=== PATIENT | female | born 1945 | race Caucasian/White ===

== ENCOUNTER 2017-06-29 09:15 | Emergency (ER) | payer OTHER ==
[~2017-06-29] VITALS: Ht 160 cm; Wt 76.0 kg
[2017-06-29 09:36] VITALS: BP 176/117; PULSE 99; RESP 22; TEMP 98.7; O2SAT 90
[2017-06-29] MEDS ORDERED: FURO20TA PO (09:51)
[2017-06-29] MEDS ORDERED: METO25TA3 PO (09:51)
[2017-06-29] MEDS ORDERED: SYMB160A INH (09:51)
[2017-06-29] MEDS ORDERED: VENTAER INH (09:51)
[2017-06-29] MEDS ORDERED: ROPI.5 PO (09:51)
[2017-06-29] MEDS ORDERED: UMEC1INH INH (09:51)
[2017-06-29] MEDS ORDERED: ATOR20TA15 PO (09:51)
[2017-06-29 09:53] VITALS: BP 187/60; PULSE 91; RESP 20; TEMP 98.7; O2SAT 94
--- NOTE | 2017-06-29 10:13 | PD ---
HPI Chief Complaint: Cold / Flu Symptoms Time Seen by Provider: 09:53 Travel History International Travel<30 days: No Contact w/Intl Traveler<30days: No Traveled to known affect area: No History of Present Illness HPI This 71-year-old female says she feels like she has the flu. She has had a dry cough. She has felt a little bit short of breath. She has been told in the past that she has copd. sHe stopped smoking 5 years ago. She also has aortic stenosis which is being followed by a benefits clerk. She has some kidney disease. She has a stent in her heart. She has not been feeling well for the last couple of days. She has had a nonproductive cough. She says she had a temp of 101 yesterday. She had some sharp right-sided chest pain 2 days ago PFS Past Medical History Cardiovascular Problems: Yes (htn on meds) High Cholesterol: Yes COPD: Yes Diminished Hearing: No Hypertension: Yes Medical other: Yes (restless leg) Respiratory: Yes (copd) Influenza Vaccination: Yes ?: Not Past Surgical History Other Surgery: Yes (left bunionectomy) Social History Alcohol Use: No Tobacco Use: No Allergies-Medications (Allergen,Severity, Reaction): Coded Allergies: lisinopril (Verified Adverse Reaction, Severe, Cough, 06/29/17) Reported Meds & Prescriptions Reported Meds & Active Scripts Active Reported Requip (Ropinirole HCl) 0.5 Mg Tab 0.5 Mg PO HS Atorvastatin (Atorvastatin Calcium) 20 Mg Tab 20 Mg PO HS Metoprolol Tartrate 25 Mg Tab 25 Mg PO HS Furosemide 20 Mg Tab 20 Mg PO HS Ventolin Hfa 18 GM Inh (Albuterol Sulfate) 90 Mcg/Act Aer 2 Puff INH Q4-6H PRN Symbicort Inh (Budesonide/Formoterol Fumarate) 160-4.5 Mcg/Act Aero 1 Puff INH Q12HR Incruse Ellipta Inh (Umeclidinium [place] Inh) 0.0625 Mg/Act Inh 62.5 Mcg INH DAILY Review of Systems General / Constitutional: Positive: Fever, Chills Eyes: No: Diploplia, Blurred Vision HENT: No: Headaches, Vertigo Cardiovascular: Positive: Chest Pain or Discomfort Respiratory: No: Cough, Shortness of Breath Physical Exam Narrative GENERAL: Well-developed female. She does not appear in acute distress SKIN: Focused skin assessment warm/dry. HEAD: Atraumatic. Normocephalic. EYES: Pupils equal and round. No scleral icterus. No injection or drainage. ENT: No nasal bleeding or discharge. Mucous membranes pink and moist. NECK: Trachea midline. No JVD. CARDIOVASCULAR: Regular rate and rhythm. There is a systolic murmur present RESPIRATORY: No accessory muscle use. There are occasional rhonchi. Breath sounds equal bilaterally. GASTROINTESTINAL: Abdomen soft, non-tender, nondistended. Hepatic and splenic margins not palpable. MUSCULOSKELETAL: No obvious deformities. No clubbing. No cyanosis. Bilateral pedal edema NEUROLOGICAL: Awake and alert. No obvious cranial nerve deficits. Motor grossly within normal limits. Normal speech. PSYCHIATRIC: Appropriate mood and affect; insight and judgment normal. Data Data Last Documented VS Vital Signs Date Time Temp Pulse Resp B/P (MAP) Pulse Ox O2 Delivery O2 Flow Rate FiO2 06/29/17 10:57 86 18 159/65 (96) 95 Nasal Cannula 2.00 06/29/17 09:53 98.7 Orders Orders Electrocardiogram (06/29/17 10:06) Complete Blood Count With Diff (06/29/17 10:06) Comprehensive Metabolic Panel (06/29/17 10:06) Troponin I (06/29/17 10:06) B-Type Natriuretic Peptide (06/29/17 10:06) Urinalysis - C+S If Indicated (06/29/17 10:06) Chest, Single Ap (06/29/17 10:06) Influenzae A/B Antigen (06/29/17 10:06) Amoxicillin (Trimox) (06/29/17 11:30) Prednisone (Deltasone) (06/29/17 11:30) Labs Laboratory Tests Test 06/29/17 10:20 06/29/17 11:10 White Blood Count 16.2 TH/MM3 Red Blood Count 3.48 MIL/MM3 Hemoglobin 10.8 GM/DL Hematocrit 32.2 % Mean Corpuscular Volume 92.4 FL Mean Corpuscular Hemoglobin 31.0 PG Mean Corpuscular Hemoglobin Concent 33.5 % Red Cell Distribution Width 13.7 % Platelet Count 263 TH/MM3 Mean Platelet Volume 6.8 FL Neutrophils (%) (Auto) 83.1 % Lymphocytes (%) (Auto) 9.8 % Monocytes (%) (Auto) 5.4 % Eosinophils (%) (Auto) 0.5 % Basophils (%) (Auto) 1.2 % Neutrophils # (Auto) 13.4 TH/MM3 Lymphocytes # (Auto) 1.6 TH/MM3 Monocytes # (Auto) 0.9 TH/MM3 Eosinophils # (Auto) 0.1 TH/MM3 Basophils # (Auto) 0.2 TH/MM3 CBC Comment AUTO DIFF Differential Comment AUTO DIFF CONFIRMED Blood Urea Nitrogen 26 MG/DL Creatinine 1.60 MG/DL Random Glucose 78 MG/DL Total Protein 7.9 GM/DL Albumin 2.9 GM/DL Calcium Level 8.4 MG/DL Alkaline Phosphatase 90 U/L Aspartate Amino Transf (AST/SGOT) 16 U/L Alanine Aminotransferase (ALT/SGPT) 19 U/L Total Bilirubin 0.5 MG/DL Sodium Level 133 MEQ/L Potassium Level 4.1 MEQ/L Chloride Level 99 MEQ/L Carbon Dioxide Level 27.0 MEQ/L Anion Gap 7 MEQ/L Estimat Glomerular Filtration Rate 32 ML/MIN Troponin I LESS THAN 0.02 NG/ML B-Type Natriuretic Peptide 50 PG/ML MDM Medical Decision Making Medical Screen Exam Complete: Yes Emergency Medical Condition: Yes Medical Record Reviewed: Yes Differential Diagnosis Differential includes CHF, COPD, pneumonia Narrative Course X-rays read as negative. BNP is normal. Impression is acute bronchitis, COPD exacerbation. She will be put on amoxicillin and prednisone Diagnosis Primary Impression: Bronchitis Additional Impression: COPD exacerbation Scripts Amoxicillin (Amoxicillin) 500 Mg Tab 500 MG PO TID for Infection for 10 Days, TAB 0 Refills Prov: Uli Murphy MD 06/29/17 Prednisone (Prednisone) 20 Mg Tab 60 MG PO DAILY for 3 Days, #9 TAB 0 Refills Prov: Uli Murphy MD 06/29/17 Disposition: 01 DISCHARGE HOME Condition: Stable Uli Murphy MD Jun 29, 2017 10:13
[2017-06-29 10:25] LABS: AUTOMATED NEUTROPHIL # 13.4 TH/MM3 (1.8-7.7); BASOPHIL # 0.2 TH/MM3 (0-0.2); BASOPHIL % 1.2 % (0.0-2.0); EOSINOPHIL # 0.1 TH/MM3 (0-0.4); EOSINOPHIL % 0.5 % (0.0-4.0); HEMATOCRIT 32.2 % (35.0-46.0); LYMPH % 9.8 % (9.0-44.0); LYMPHOCYTE # 1.6 TH/MM3 (1.0-4.8); MEAN CELL VOLUME 92.4 FL (80.0-100.0); MEAN CORPUSCULAR HGB CONC 33.5 % (32.0-36.0); MONO % 5.4 % (0.0-8.0); NEUT % 83.1 % (16.0-70.0); PLATELET COUNT 263 TH/MM3 (150-450); RED BLOOD COUNT 3.48 MIL/MM3 (4.00-5.30); RED CELL DISTRIBUTION WIDTH 13.7 % (11.6-17.2); WHITE BLOOD COUNT 16.2 TH/MM3 (4.0-11.0)
[2017-06-29 10:27] LABS: HEMO FLAGS AUTO DIFF
[2017-06-29 10:39] LABS: CHLORIDE 99 MEQ/L (98-107); POTASSIUM 4.1 MEQ/L (3.5-5.1); SODIUM (NA) 133 MEQ/L (136-145)
[2017-06-29 10:42] LABS: ANION GAP 7 MEQ/L (5-15); BLOOD UREA NITROGEN 26 MG/DL (7-18)
[2017-06-29 10:45] LABS: ALT (GPT) 19 U/L (10-53); AST (GOT) 16 U/L (15-37); GLOMERULAR FILTRATION RATE 32 ML/MIN (>89)
[2017-06-29 10:47] LABS: TOTAL BILIRUBIN ADULT 0.5 MG/DL (0.2-1.0)
[2017-06-29 10:48] LABS: ALKALINE PHOSPHATASE 90 U/L (45-117)
[2017-06-29 10:53] LABS: SCAN/DIFF AUTO DIFF CONFIRMED
[2017-06-29 10:57] VITALS: BP 159/65; PULSE 86; RESP 18; O2SAT 95
--- NOTE | 2017-06-29 10:59 | RADRPT ---
EXAM DATE/TIME: 06/29/2017 10:37 [facility] COMPARISON: No previous studies available for comparison. INDICATIONS : Cough, short of breath. MEDICAL HISTORY : Chronic obstructive pulmonary disease. SURGICAL HISTORY : Coronary artery stent. ENCOUNTER: Initial ACUITY: 3 days PAIN SCORE: 0/10 LOCATION: Bilateral chest FINDINGS: A single view of the chest demonstrates the lungs to be symmetrically aerated without evidence of mas s, infiltrate or effusion. The cardiomediastinal contours are unremarkable. Osseous structures are intact. CONCLUSION: No acute disease. Fer Leavitt MD on June 29, 2017 at 10:57 Board Certified Radiologist. This report was verified electronically.
[2017-06-29] MEDS ORDERED: PRED20 PO (11:22)
[2017-06-29] MEDS ORDERED: AMOX500T PO (11:22)
[2017-06-29 11:27] LABS: BLOOD, URINE MOD (NEG); GLUCOSE,URINE NEG (NEG); KETONE, URINE 15 mg/dL (NEG); NITRITE,URINE NEG (NEG); PH, URINE 6.5 (5.0-8.5)
[2017-06-29 11:28] LABS: URINE COLOR YELLOW (YELLW/STRAW)
[2017-06-29 11:29] VITALS: BP 128/64
[2017-06-29] MEDS ORDERED: AMOXICILLIN (TRIHYDRATE) 500 MG CAP PO ONE (11:30)
[2017-06-29] MEDS ORDERED: predniSONE 20 MG TAB PO ONE (11:30)
[2017-06-29 11:35] LABS: BACTERIA, URINE RARE /hpf; COMMENT (UR) CULT NOT INDICATED; CULTURE IF INDICATED CULT NOT INDICATED; RBC, URINE 0-3 /hpf (0-3); SQUAMOUS EPITHELIAL CELL URINE 0-5 /hpf (0-5)
--- NOTE | 2017-06-30 18:28 | EKG ---
Date Performed: 06/29/2017 Time Performed: 10:14:12 PTAGE: 71 years EKG: Sinus rhythm POSSIBLE LEFT ATRIAL ENLARGEMENT BORDERLINE ECG NO PREVIOUS TRACING DOCTOR: Herlinda Spears Interpretating Date/Time 06/30/2017 18:19:24
== END 2017-06-29 11:33 | disposition home or self-care (01) ==
LOC: PHED 09:15
DX: J40 Bronchitis, not specified as acute or chronic (principal); J44.1 Chronic obstructive pulmonary disease with (acute) exacerbation; I35.0 Nonrheumatic aortic (valve) stenosis; R07.89 Other chest pain; R94.31 Abnormal electrocardiogram [ECG] [EKG]; I10 Essential (primary) hypertension; E78.00 Pure hypercholesterolemia, unspecified; G25.81 Restless legs syndrome; Z95.5 Presence of coronary angioplasty implant and graft
CPT/HCPCS: 71010; 80053; 81001; 83880; 84484; 85025; 87804; 93005; 99285; J7512

== ENCOUNTER 2018-06-29 01:24 | Inpatient (IN) ==
--- NOTE | 2018-06-29 01:34 | ED ---
HPI General Chief Complaint: Respiratory Symptoms Stated Complaint: EVAC/short of breath Time Seen by Provider: 06/29/18 01:30 Source: patient and EMS Mode of arrival: EMS Limitations: no limitations History of Present Illness HPI Narrative: Is a 72-year-old female who has a history of emphysema says that she has had an allergic reaction possibly to mold that she was cleaning out of her basement yesterday she has nebulizers it is not improving her symptoms which are wheezing shortness of breath paramedics arrived to find her deciding to 85 on room air after neb she is up to 97 while she is still on the oxygen patient denies chest pain no nausea no vomit no diarrhea no fluid loss she denies an upper respiratory infection she thinks it is all allergies she says she is not sure because she only moved to [place] 2 years ago so the weather patterns she is unclear whether they affect her lungs. She is audible wheezes without auscultation increased respiratory rate descending to 81 a room air prior to 20 been putting on 3 L and then giving a DuoNeb with oxygen Complaint: Reports cough Related Data Home Medications Medication Instructions Recorded Confirmed albuterol sulfate [Ventolin HFA] 1 puff INHALATION Q4HR NEB PRN 06/29/18 atorvastatin 40 mg PO DAILY 06/29/18 06/29/18 budesonide-formoterol [Symbicort] 2 puff INHALATION BID 06/29/18 06/29/18 furosemide 20 mg PO BID 06/29/18 06/29/18 metoprolol succinate 50 mg PO BID 06/29/18 06/29/18 pramipexole PO HS 06/29/18 tiotropium bromide [Spiriva with 1 cap INHALATION DAILY 06/29/18 06/29/18 HandiHaler] Previous Rx's Medication Instructions Recorded amlodipine [Norvasc] 10 mg PO DAILY #30 tab 07/03/18 prednisone 10 mg PO DAILY #17 tab 07/03/18 Allergies Allergy/AdvReac Type Severity Reaction Status Date / Time lisinopril AdvReac Severe Cough Verified 06/29/18 01:35 Review of Systems ROS: all other systems reviewed are negative [facility] Medical History Medical History Aortic stenosis (Acute) COPD (chronic obstructive pulmonary disease) (Acute) Surgical History Surgical History H/O heart artery stent (Acute) Family History Family History Mother Heart problem Myocardial infarct Brother Heart problem Social History Social History Substance History: No History of Abuse Second Hand Smoke Exposure: No Smoking Status: Former smoker Tobacco Type: Cigarettes How Often Do You Have a Drink Containing Alcohol: Never Recent Travel in [facility] within the Last 8 Weeks: No Recent Out of Country Travel within the Last 8 Weeks: No Exam Narrative Exam Narrative: GENERAL: pt wheezing with increased RR mod resp distress SKIN: Warm and dry. HEAD: Atraumatic. Normocephalic. EYES: Pupils equal and round. No scleral icterus. No injection or drainage. ENT: No nasal bleeding or discharge. Mucous membranes pink and moist. NECK: Trachea midline. No JVD. CARDIOVASCULAR: Regular rate and rhythm. RESPIRATORY: bilateral wheeze diffuse in all field equal bilaterally. GASTROINTESTINAL: Abdomen soft, non-tender, nondistended. Hepatic and splenic margins not palpable. MUSCULOSKELETAL: Extremities without clubbing, cyanosis, or edema. No obvious deformities. NEUROLOGICAL: Awake and alert. No obvious cranial nerve deficits. Motor grossly within normal limits. Five out of 5 muscle strength in the arms and legs. Normal speech. PSYCHIATRIC: Appropriate mood and affect; insight and judgment normal. Course Initial Documented Vital Signs Pulse Rate 112 H 06/29/18 01:29 Respiratory Rate 25 H 06/29/18 01:29 Blood Pressure 190/95 H 06/29/18 01:29 Pulse Oximetry 84 L 06/29/18 01:29 Last Documented Vital Signs Temperature 97.0 F L 07/03/18 12:00 Pulse Rate 84 07/03/18 12:00 Respiratory Rate 19 07/03/18 12:00 Blood Pressure 150/69 H 07/03/18 12:00 Pulse Oximetry 95 07/03/18 12:00 Medical Decision Making MDM Narrative Medical decision making narrative: symptomatic treatment and discharged home for outpt follow up Medical Screen Exam Complete: Yes Emergency Medical Condition: Yes Differential Diagnosis Differential Diagnosis: reactive airway vs PNA vs bronchchitis vs other Lab Data Result diagrams: 07/02/18 05:20 11/12/18 05:20 Lab Results 06/29/18 06/29/18 06/29/18 Range/Units 01:37 01:37 01:37 CBC w Diff Auto diff final WBC 7.7 (4.0-11.0) th/mm3 RBC 3.95 L (4.00-5.30) mil/mm3 Hgb 12.0 (11.6-15.3) gm/dL Hct 36.3 (35.0-46.0) % MCV 91.8 (80.0-100.0) fL MCH 30.5 (27.0-34.0) pg MCHC 33.2 (32.0-36.0) % RDW 15.3 (11.6-17.2) % Plt Count 245 (150-450) th/mm3 MPV 7.4 (7.0-11.0) fL Neut % (Auto) 87.9 H (16.0-70.0) % Lymph % (Auto) 11.0 (9.0-44.0) % Mckean % (Auto) 0.9 (0.0-8.0) % Eos % (Auto) 0.1 (0.0-4.0) % Baso % (Auto) 0.1 (0.0-2.0) % Neut # (Auto) 6.8 (1.8-7.7) th/mm3 Lymph # (Auto) 0.8 L (1.0-4.8) th/mm3 Mckean # (Auto) 0.1 (0.0-0.9) th/mm3 Eos # (Auto) 0.0 (0.0-0.4) th/mm3 Baso # (Auto) 0.0 (0.0-0.2) th/mm3 WBC Differential . Differential Comment . Sodium 135 L (136-145) meq/L Potassium 4.7 (3.5-5.1) meq/L Chloride 100 (98-107) meq/L Carbon Dioxide 26.9 (21.0-32.0) meq/L Anion Gap 8 (5-15) meq/L BUN 38 H (7-18) mg/dL Creatinine 1.90 H (0.50-1.00) mg/dL Estimated GFR 26 L (>89) mL/min Random Glucose 127 H (74-106) mg/dL Calcium 8.9 (8.5-10.1) mg/dL Total Bilirubin 0.4 (0.2-1.0) mg/dL AST 27 (15-37) U/L ALT 27 (10-53) U/L Alkaline Phosphatase 95 (45-117) U/L Troponin I Less than 0.02 L Cancelled (0.02-0.05) ng/mL Total Protein 8.7 H (6.4-8.2) g/dL Albumin 3.4 (3.4-5.0) g/dL Procalcitonin (0.00-0.08) ng/mL 06/30/18 06/30/18 07/01/18 Range/Units 09:40 09:40 11:47 CBC w Diff WBC (4.0-11.0) th/mm3 RBC (4.00-5.30) mil/mm3 Hgb (11.6-15.3) gm/dL Hct (35.0-46.0) % MCV (80.0-100.0) fL MCH (27.0-34.0) pg MCHC (32.0-36.0) % RDW (11.6-17.2) % Plt Count (150-450) th/mm3 MPV (7.0-11.0) fL Neut % (Auto) (16.0-70.0) % Lymph % (Auto) (9.0-44.0) % Mckean % (Auto) (0.0-8.0) % Eos % (Auto) (0.0-4.0) % Baso % (Auto) (0.0-2.0) % Neut # (Auto) (1.8-7.7) th/mm3 Lymph # (Auto) (1.0-4.8) th/mm3 Mckean # (Auto) (0.0-0.9) th/mm3 Eos # (Auto) (0.0-0.4) th/mm3 Baso # (Auto) (0.0-0.2) th/mm3 WBC Differential Differential Comment Sodium 133 L 134 L (136-145) meq/L Potassium 4.5 4.4 (3.5-5.1) meq/L Chloride 96 L 99 (98-107) meq/L Carbon Dioxide 27.1 28.0 (21.0-32.0) meq/L Anion Gap 10 7 (5-15) meq/L BUN 50 H 51 H (7-18) mg/dL Creatinine 2.00 H 1.70 H (0.50-1.00) mg/dL Estimated GFR 24 L 29 L (>89) mL/min Random Glucose 174 H 120 H (74-106) mg/dL Calcium 9.0 8.5 (8.5-10.1) mg/dL Total Bilirubin (0.2-1.0) mg/dL AST (15-37) U/L ALT (10-53) U/L Alkaline Phosphatase (45-117) U/L Troponin I (0.02-0.05) ng/mL Total Protein (6.4-8.2) g/dL Albumin (3.4-5.0) g/dL Procalcitonin 0.10 H (0.00-0.08) ng/mL 07/02/18 07/02/18 Range/Units 05:20 05:20 CBC w Diff Auto diff final WBC 11.9 H (4.0-11.0) th/mm3 RBC 3.90 L (4.00-5.30) mil/mm3 Hgb 12.0 (11.6-15.3) gm/dL Hct 36.2 (35.0-46.0) % MCV 92.8 (80.0-100.0) fL MCH 30.8 (27.0-34.0) pg MCHC 33.2 (32.0-36.0) % RDW 14.6 (11.6-17.2) % Plt Count 244 (150-450) th/mm3 MPV 7.1 (7.0-11.0) fL Neut % (Auto) 89.2 H (16.0-70.0) % Lymph % (Auto) 6.9 L (9.0-44.0) % Mckean % (Auto) 3.0 (0.0-8.0) % Eos % (Auto) 0.1 (0.0-4.0) % Baso % (Auto) 0.8 (0.0-2.0) % Neut # (Auto) 10.6 H (1.8-7.7) th/mm3 Lymph # (Auto) 0.8 L (1.0-4.8) th/mm3 Mckean # (Auto) 0.4 (0.0-0.9) th/mm3 Eos # (Auto) 0.0 (0.0-0.4) th/mm3 Baso # (Auto) 0.1 (0.0-0.2) th/mm3 WBC Differential . Differential Comment . Sodium 137 (136-145) meq/L Potassium 4.1 (3.5-5.1) meq/L Chloride 104 (98-107) meq/L Carbon Dioxide 24.2 (21.0-32.0) meq/L Anion Gap 9 (5-15) meq/L BUN 51 H (7-18) mg/dL Creatinine 1.50 H (0.50-1.00) mg/dL Estimated GFR 34 L (>89) mL/min Random Glucose 157 H (74-106) mg/dL Calcium 8.3 L (8.5-10.1) mg/dL Total Bilirubin (0.2-1.0) mg/dL AST (15-37) U/L ALT (10-53) U/L Alkaline Phosphatase (45-117) U/L Troponin I (0.02-0.05) ng/mL Total Protein (6.4-8.2) g/dL Albumin (3.4-5.0) g/dL Procalcitonin (0.00-0.08) ng/mL Imaging Data Radiologist's impression: Chest X-Ray 06/29/18 01:30 CONCLUSION: Negative examination. Discharge Plan Discharge Disposition Patient Disposition: 01 Discharge Home Discharge Condition Condition: Good Discharge Order Discharge Orders: Discharge Order (Routine); Ordered 07/03/18 Ordered By: Elzbieta Villeda Physicians Team ED Provider: Benji Casper Primary Care Provider: Mehdi Parikh Attending Provider: Elzbieta Villeda Other Providers: [employer] Status ED Status: Left Department Discharge Information Discharge Date/Time: 06/29/18 07:15
[2018-06-29] MEDS ORDERED: MethylPREDNISolone Sod Succinate Inj 125 MG/2 ML Vial IV.PUSH ONE (01:36)
[2018-06-29 01:57] LABS: Baso % (Auto) 0.1 % (0.0-2.0); Eos % (Auto) 0.1 % (0.0-4.0); Hematocrit 36.3 % (35.0-46.0); Lymph # (Auto) 0.8 th/mm3 (1.0-4.8); Mean Corpuscular HGB Conc 33.2 % (32.0-36.0); Mean Corpuscular Hemoglobin 30.5 pg (27.0-34.0); Mean Corpuscular Volume 91.8 fL (80.0-100.0); Mean Platelet Volume 7.4 fL (7.0-11.0); Mono # (Auto) 0.1 th/mm3 (0.0-0.9); Mono % (Auto) 0.9 % (0.0-8.0); Neut # (Auto) 6.8 th/mm3 (1.8-7.7); Neut % (Auto) 87.9 % (16.0-70.0); Platelet Count 245 th/mm3 (150-450); Red Blood Count 3.95 mil/mm3 (4.00-5.30); Red Cell Distribution Width 15.3 % (11.6-17.2); White Blood Count 7.7 th/mm3 (4.0-11.0)
[2018-06-29 02:02] LABS: Chloride 100 meq/L (98-107); Potassium 4.7 meq/L (3.5-5.1); Sodium 135 meq/L (136-145)
[2018-06-29 02:05] LABS: Calcium 8.9 mg/dL (8.5-10.1)
[2018-06-29 02:06] LABS: Albumin 3.4 g/dL (3.4-5.0); Anion Gap 8 meq/L (5-15); Blood Urea Nitrogen 38 mg/dL (7-18); Carbon Dioxide 26.9 meq/L (21.0-32.0); Glucose,Random 127 mg/dL (74-106)
[2018-06-29 02:09] LABS: Alanine Aminotransferase 27 U/L (10-53); Aspartate Aminotransferase 27 U/L (15-37); Glomerular Filtration Rate 26 mL/min (>89)
[2018-06-29 02:10] LABS: Total Protein 8.7 g/dL (6.4-8.2)
[2018-06-29 02:12] LABS: Alkaline Phosphatase 95 U/L (45-117)
--- NOTE | 2018-06-29 02:16 | XR ---
EXAM DATE: 06/29/2018 1:45 AM EST AGE/SEX: 72 years / Female INDICATIONS: Shortness of breath for 12 hours CLINICAL DATA: This is the patient's initial encounter. Patient reports that signs and symptoms have been present for 1 day and indicates a pain score of 0/10. MEDICAL/SURGICAL HISTORY: Chronic obstructive pulmonary disease. Coronary artery stent. COMPARISON: PO, CHEST SINGLE AP, 06/29/2017. . FINDINGS: A single AP view of the chest demonstrates the lungs to be symmetrically aerated without evidence of mass, infiltrate or effusion. The cardiomediastinal contours are unremarkable. Osseous structures a re intact. CONCLUSION: Negative examination. Electronically signed by: Sahil Paulino MD 06/29/2018 2:15 AM EST
[2018-06-29] MEDS ORDERED: Sodium Chlor 0.9% Inj 500 ML IV.SIG ONE (02:51)
[2018-06-29] MEDS: MethylPREDNISolone Sod Succinate Inj 125 MG/2 ML Vial IV.PUSH SCH ×4 (03:01→20:02)
--- NOTE | 2018-06-29 08:57 | P.HPIM ---
History of Present Illness Primary Care Physician: Mehdi Parikh MD History of Present Illness: 72-year-old female who has a history of emphysema/COPD, HLD, CAD with stent in the past says that she has had an allergic reaction possibly to mold that she was cleaning out of her basement yesterday she has nebulizers it is not improving her symptoms which are wheezing shortness of breath paramedics arrived to find her deciding to 85 on room air after neb she is up to 97 while she is still on the oxygen patient denies chest pain no nausea no vomit no diarrhea no fluid loss she denies an upper respiratory infection she thinks it is all allergies she says she is not sure because she only moved to [place] 2 years ago so the weather patterns she is unclear whether they affect her lungs. She is audible wheezes without auscultation increased respiratory rate descending to 81 a room air prior to 20 been putting on 3 L and then giving a DuoNeb with oxygen Inpatient Certification: I certify that the inpatient services were ordered in accordance with Medicare regulations governing the order. This includes certification that hospital inpatient services are reasonable and necessary and in the case of services not specified as inpatient-only under 42 CFR 419.22(n), that they are appropriately provided as inpatient services in accordance to with the 2-midnight benchmark under 43 CFR 412.3(e) Review of Systems All other systems reviewed negative except as stated in HPI PMFSH - History History Provided By: Patient - Medical History Medical History: Medical History (Last Reviewed 06/29/18 @ 08:54 by Sandy Galloway MD) Aortic stenosis COPD (chronic obstructive pulmonary disease) - Surgical History Surgical History: Surgical History (Last Reviewed 06/29/18 @ 08:54 by Sandy Galloway MD) H/O heart artery stent - Family History Family History: Family History (Last Updated 06/29/18 @ 11:02 by Sandy Galloway MD) Mother Heart problem Myocardial infarct Brother Heart problem - Social History I have reviewed the patient's Social History: Yes - Tobacco History Tobacco Use In Past 30 Days: No Smoking Status: Former smoker - Alcohol History How Often Do You Have a Drink Containing Alcohol: Never - Substance Use History Substance History: No History of Abuse - Travel History Recent Travel in the [place] Within the Last 8 Weeks: No Recent Travel Out of the Country Within the Last 8 Weeks: No - Immunization History Tetanus Immunization: >5 Years Medications and Allergies Active Medications: Active Medications Albuterol (Duoneb Neb (Prn)) 1 ampul NEB Q2HR NEB PRN PRN Reason: SHORTNESS OF BREATH/WHEEZING Albuterol (Duoneb Neb (Ray)) 1 ampul NEB Q6HR WHILE AWAKE NEB RAY Atorvastatin Calcium (Lipitor) 40 mg PO DAILY RAY Azithromycin (Zithromax) 500 mg PO DAILY RAY Stop: 07/01/18 09:01 Budesonide/Formoterol Fumarate (Symbicort 160/4.5 Mcg Inh) 2 puff INH BID RAY Furosemide (Lasix) 20 mg PO BID RAY Methylprednisolone Sodium Succinate (Solumedrol Inj) 60 mg IV.PUSH Q6H RAY Last Admin: 06/29/18 03:01 Dose: Not Given Metoprolol Succinate (Toprol Xl) 50 mg PO BID RAY Sodium Chloride (Ns Flush) 2 ml IV.FLUSH BID RAY Sodium Chloride (Ns Flush) 2 ml IV.FLUSH PRN PRN PRN Reason: FLUSH AFTER USING IV ACCESS Tiotropium [place] (Spiriva 18 Mcg Inh) 18 mcg INH DAILY [facility] Allergies Allergy/AdvReac Type Severity Reaction Status Date / Time lisinopril AdvReac Severe Cough Verified 06/29/18 01:35 Home Medications Medication Instructions Recorded Confirmed Type albuterol sulfate [Ventolin HFA] 1 puff INHALATION Q4HR NEB PRN 06/29/18 History atorvastatin 40 mg PO DAILY 06/29/18 06/29/18 History budesonide-formoterol [Symbicort] 2 puff INHALATION BID 06/29/18 06/29/18 History furosemide 20 mg PO BID 06/29/18 06/29/18 History metoprolol succinate 50 mg PO BID 06/29/18 06/29/18 History tiotropium bromide [Spiriva with 1 cap INHALATION DAILY 06/29/18 06/29/18 History HandiHaler] Exam Vital signs: Vital Signs 06/29/18 01:29 06/29/18 01:32 06/29/18 01:33 Temperature Pulse Rate 112 H 98 H Respiratory Rate 25 H 24 Blood Pressure 190/95 H Pulse Oximetry 84 L 98 99 06/29/18 02:15 06/29/18 02:45 06/29/18 03:00 Temperature 98.9 F Pulse Rate 95 H 92 H 99 H Respiratory Rate 22 22 20 Blood Pressure 168/87 H 149/67 H Pulse Oximetry 98 95 06/29/18 05:00 06/29/18 06:10 06/29/18 06:55 Temperature 97.9 F Pulse Rate 81 83 Respiratory Rate 20 20 20 Blood Pressure 148/59 H 152/75 H Pulse Oximetry 95 97 06/29/18 07:04 06/29/18 08:14 Temperature Pulse Rate 84 87 Respiratory Rate 20 22 Blood Pressure 151/67 H Pulse Oximetry Intake & Output 06/28/18 06/29/18 06/29/18 18:59 06:59 18:59 Intake Total 650 / 650 Balance 650 / 650 Weight 81.647 kg Intake: IV 650 / 650 Levaquin 750 mg Premix Inj 150 150 / 150 ML @ 100 mls/hr IV.SIG ONCE ONE Rx#:[id number] NS Inj 500 ML @ Wide Open IV. 500 / 500 SIG BOLUS ONE Rx#:[id number] Narrative: GENERAL: Pleasant 72 yo F, at the margin of the bed, appears with sob. SKIN: Warm and dry. HEAD: Atraumatic. Normocephalic. EYES: Pupils equal and round. No scleral icterus. No injection or drainage. ENT: No nasal bleeding or discharge. Mucous membranes pink and moist. NECK: Trachea midline. No JVD. CARDIOVASCULAR: Regular rate and rhythm. RESPIRATORY: No accessory muscle use. Clear to auscultation. Breath sounds decreased. Scattered wheezing. GASTROINTESTINAL: Abdomen soft, non-tender, nondistended. Hepatic and splenic margins not palpable. MUSCULOSKELETAL: Extremities without clubbing, cyanosis, or edema. No obvious deformities. NEUROLOGICAL: Awake and alert. No obvious cranial nerve deficits. Motor grossly within normal limits. Five out of 5 muscle strength in the arms and legs. Normal speech. PSYCHIATRIC: Appropriate mood and affect; insight and judgment normal. Results - Labs CBC & Chem 7: 06/29/18 01:37 06/29/18 01:37 Labs: Short CBC 06/29/18 Range/Units 01:37 WBC 7.7 (4.0-11.0) th/mm3 Hgb 12.0 (11.6-15.3) gm/dL Hct 36.3 (35.0-46.0) % Plt Count 245 (150-450) th/mm3 BMP 06/29/18 01:37 Sodium 135 L Potassium 4.7 Chloride 100 Carbon Dioxide 26.9 BUN 38 H Creatinine 1.90 H Calcium 8.9 Cardiac Enzymes 06/29/18 06/29/18 Range/Units 01:37 01:37 Troponin I Less than 0.02 L Cancelled (0.02-0.05) ng/mL Liver Function 06/29/18 Range/Units 01:37 Total Bilirubin 0.4 (0.2-1.0) mg/dL AST 27 (15-37) U/L ALT 27 (10-53) U/L Alkaline Phosphatase 95 (45-117) U/L Albumin 3.4 (3.4-5.0) g/dL - Imaging Impressions Chest X-Ray 06/29/18 01:30 CONCLUSION: Negative examination. Caprini VTE Risk Assessment Caprini VTE Risk Assessment: No/Low Risk (score <= 1) Caprini Risk Assessment Model: Point Value = 1 Point Value = 2 Point Value = 3 Point Value = 5 Age 41-60 Minor surgery BMI > 25 kg/m2 Swollen legs Varicose veins or History of unexplained or recurrent spontaneous Oral contraceptives or hormone replacement Sepsis (< 1 month) Serious lung disease, including pneumonia (< 1 month) Abnormal pulmonary function Acute myocardial infarction Congestive heart failure (< 1 month) History of inflammatory bowel disease Medical patient at bed rest Age 61-74 Arthroscopic surgery Major open surgery (> 45 min) Laparoscopic surgery (> 45 min) Malignancy Confined to bed (> 72 hours) Immobilizing plaster cast Central venous access Age >= 75 History of VTE Family history of VTE Factor V Leiden Prothrombin [id number] Lupus anticoagulant Anticardiolipin antibodies Elevated serum homocysteine Heparin-induced thrombocytopenia Other congenital or acquired thrombophilia Stroke (< 1 month) Elective arthroplasty Hip, pelvis, or leg fracture Acute spinal cord injury (< 1 month) Prophylaxis Regimen: Total Risk Factor Score Risk Level Prophylaxis Regimen 0-1 Low Early ambulation 2 Moderate Order ONE of the following: *Sequential Compression Device (SCD) *Heparin 5000 units SQ BID 3-4 Higher Order ONE of the following medications: *Heparin 5000 units SQ TID *Enoxaparin/Lovenox 40 mg SQ daily (WT < 150 kg, CrCl > 30 mL/min) *Enoxaparin/Lovenox 30 mg SQ daily (WT < 150 kg, CrCl > 10-29 mL/min) *Enoxaparin/Lovenox 30 mg SQ BID (WT < 150 kg, CrCl > 30 mL/min) AND/OR *Sequential Compression Device (SCD) 5 or more Highest Order ONE of the following medications: *Heparin 5000 units SQ TID (Preferred with Epidurals) *Enoxaparin/Lovenox 40 mg SQ daily (WT < 150 kg, CrCl > 30 mL/min) *Enoxaparin/Lovenox 30 mg SQ daily (WT < 150 kg, CrCl > 10-29 mL/min) *Enoxaparin/Lovenox 30 mg SQ BID (WT < 150 kg, CrCl > 30 mL/min) AND *Sequential Compression Device (SCD) Assessment and Plan - Plan COPD with exacerbation Acute respiratory failure. Hypoxia on admission dessatign at 84% CXR no infiltrates Continue duonebs and solumedrool , taper steroids and nebs as tolerated Restart home meds Monitor O2 sat , give O2 supplement to keep O2 sat > 92% gentle IVF Chronic med problems appears stable at this time. Monitor. HTN , HLD , h/o CaD with stent continue home meds as appropriate DVT ppx scd/teds/ambulation Code Status: full code Discussed Condition With: patient. nurse
[2018-06-29] MEDS: Furosemide 20 MG Tablet PO SCH ×2 (09:08→20:01)
[2018-06-29] MEDS: Azithromycin 250 MG Tablet PO SCH (09:08)
[2018-06-29] MEDS: Budesonide-Formoterol 160/4.5 MCG 6 GM Inhaler INH SCH ×2 (10:15→20:03)
[2018-06-29] MEDS: Tiotropium Bromide 18 MCG/ACT Inhaler INH SCH (10:15)
[2018-06-29] MEDS ORDERED: Bisacodyl 10 MG Supp RECTAL PRN (10:58)
--- NOTE | 2018-06-29 15:49 | ECG ---
Date Performed: 06/29/2018 Time Performed: 02:12:05 PTAGE: 72 years EKG: Sinus rhythm Since previous tracing, no significant change noted NORMAL ECG PREVIOUS TRACING : 06/29/2017 10.14.12 DOCTOR: Elia Mahan Interpretating Date/Time 06/29/2018 15:50:13
[2018-06-29] MEDS: Senna/Docusate Sodium 8.6/50 MG Tablet PO SCH (20:02)
[2018-06-30] MEDS: MethylPREDNISolone Sod Succinate Inj 125 MG/2 ML Vial IV.PUSH SCH ×4 (02:04→20:20)
--- NOTE | 2018-06-30 08:24 | P.PNIM ---
Subjective Interval history: 72-year-old female today for follow-up on chronic obstructive pulmonary disease exacerbation. Patient still requiring O2 supplementation maintain O2 sats greater than 92%. Patient appears to be anxious about her elevated blood pressure. States that that is the reason why she came to the hospital. She had never contacted her primary medical doctor in reference to her elevated blood pressure prior to coming to the hospital. Blood pressure is elevated at this time. Patient remains afebrile. Physical Exam Vital signs: Vital Signs 06/29/18 11:52 06/29/18 13:51 06/29/18 14:17 Temperature 98.1 F Pulse Rate 84 87 96 H Respiratory Rate 17 22 28 H Blood Pressure 143/69 H Pulse Oximetry 97 06/29/18 16:00 06/29/18 19:19 06/29/18 20:00 Temperature 98.8 F 96.8 F L Pulse Rate 101 H 96 H 105 H Respiratory Rate 23 22 20 Blood Pressure 133/73 162/76 H Pulse Oximetry 93 L 95 93 L 06/29/18 23:24 06/30/18 00:00 06/30/18 02:42 Temperature 96.8 F L Pulse Rate 90 99 H 92 H Respiratory Rate 22 17 20 Blood Pressure 162/74 H Pulse Oximetry 95 06/30/18 07:24 Temperature Pulse Rate 81 Respiratory Rate 18 Blood Pressure Pulse Oximetry 94 L Intake & Output 06/29/18 06/30/18 06/30/18 18:59 06:59 18:59 Intake Total 600 / 600 240 / 240 Balance 600 / 600 240 / 240 Weight 81.64 kg 81.7 kg Intake: Oral 600 / 600 240 / 240 Other: # Voids 3 3 # Bowel Movements 0 Weight On Admission 81.64 kg Narrative: GENERAL: Well-developed, well-nourished, in no acute distress. alert and orientated HEENT: Head is normocephalic without any lesions or masses noted. Facial features are symmetric. Eyes: Extraocular muscles are intact. Conjunctivae were clear. NECK: Supple without any masses. Trachea midline no deviation. No JVD, CARDIAC: Regular rhythm, regular rate. S1/S2 are heard. No murmurs gallops or rubs. LUNGS: Patient does have clinically diminished breath sounds. No wheeze, rhonchi or rales. No use of accessory muscles on inspiration or expiration. ABDOMEN: Soft, nontender. Nondistended. Bowel sounds heard in all 4 quadrants. No organomegaly or masses. Negative rebound, negative guarding EXTREMITIES: No edema, pulses are equal bilaterally. No cyanosis or clubbing NEUROLOGY: Mood and affect appear appropriate. Cranial nerves II through XII grossly intact. Moving all extremities, speech is clear Results - Labs CBC & Chem 7: 06/29/18 01:37 06/29/18 01:37 Assessment and Plan - Plan Acute hypoxic respiratory failure secondary to chronic obstructive pulmonary disease exacerbation -We will continue O2 sat mentation maintain O2 sat greater than 92% -Continue Zithromax -Continue Solu-Medrol 60 mg IV every 6 hours -Continue DuoNeb every 6 hours while awake and every 2 hours as needed -Obtain pro-calcitonin level Accelerated hypertension -Patient's home medications Lopressor and Lasix have been continued -Add amlodipine 5 mg daily Acute renal failure superimposed on chronic kidney disease stage III -Continue monitor renal function -Avoid nephrotoxins Hyperlipidemia: -Continue home medications DVT prevention -Subcutaneous heparin Discharge Planning: Anticipate discharge planning in 24-48 hours depending on patient response to treatment
[2018-06-30] MEDS: Azithromycin 250 MG Tablet PO SCH (09:46)
[2018-06-30] MEDS: Furosemide 20 MG Tablet PO SCH ×2 (09:46→20:18)
[2018-06-30] MEDS: amLODIPine 5 MG Tablet PO SCH (09:47)
[2018-06-30] MEDS: Heparin - SQ 10,000 UNITS/ML Vial SQ SCH ×2 (09:47→20:18)
[2018-06-30] MEDS: Budesonide-Formoterol 160/4.5 MCG 6 GM Inhaler INH SCH ×2 (09:47→20:17)
[2018-06-30] MEDS: Senna/Docusate Sodium 8.6/50 MG Tablet PO SCH ×2 (09:47→20:19)
[2018-06-30] MEDS: Tiotropium Bromide 18 MCG/ACT Inhaler INH SCH (09:47)
[2018-06-30 10:07] LABS: Potassium 4.5 meq/L (3.5-5.1)
[2018-06-30 10:21] LABS: Carbon Dioxide 27.1 meq/L (21.0-32.0)
[2018-06-30] MEDS: Sod Chloride 0.9% Inj 1,000 ML IV.CONT SCH ×2 (13:50→23:55)
[2018-07-01] MEDS: MethylPREDNISolone Sod Succinate Inj 125 MG/2 ML Vial IV.PUSH SCH ×4 (06:41→21:56)
[2018-07-01] MEDS: Furosemide 20 MG Tablet PO SCH ×2 (08:59→20:42)
[2018-07-01] MEDS: Heparin - SQ 10,000 UNITS/ML Vial SQ SCH ×2 (08:59→21:58)
[2018-07-01] MEDS: amLODIPine 5 MG Tablet PO SCH (08:59)
[2018-07-01] MEDS: Azithromycin 250 MG Tablet PO SCH (08:59)
[2018-07-01] MEDS: Senna/Docusate Sodium 8.6/50 MG Tablet PO SCH ×2 (09:00→21:56)
[2018-07-01] MEDS: Tiotropium Bromide 18 MCG/ACT Inhaler INH SCH (10:37)
[2018-07-01] MEDS: Budesonide-Formoterol 160/4.5 MCG 6 GM Inhaler INH SCH ×2 (10:37→21:55)
--- NOTE | 2018-07-01 11:25 | P.PNIM ---
Subjective Interval history: Patient seen and examined today for follow-up on chronic obstructive pulmonary disease exacerbation. Patient still with significant shortness of breath. Cannot finish full sentences. Has not developed any wheeze at this time. Patient still requiring oxygen to maintain O2 supplementation. Patient remains afebrile. Physical Exam Vital signs: Vital Signs 06/30/18 11:33 06/30/18 12:00 06/30/18 15:08 Temperature 97.9 F Pulse Rate 84 84 85 Respiratory Rate 18 20 18 Blood Pressure 158/70 H Pulse Oximetry 96 06/30/18 16:00 06/30/18 20:00 06/30/18 20:37 Temperature 98.7 F 96.5 F L Pulse Rate 98 H 91 H 99 H Respiratory Rate 20 24 20 Blood Pressure 158/70 H 159/97 H Pulse Oximetry 95 95 92 L 07/01/18 00:00 07/01/18 08:00 07/01/18 08:10 Temperature 96.1 F L 97.4 F L Pulse Rate 87 90 90 Respiratory Rate 22 20 21 Blood Pressure 142/71 H 196/80 H Pulse Oximetry 96 93 L 93 L Intake & Output 06/30/18 07/01/18 07/01/18 18:59 06:59 18:59 Intake Total 1140 / 1140 1240 / 1240 240 / 240 Output Total 1000 / 1000 600 / 600 200 / 200 Balance 140 / 140 640 / 640 40 / 40 Weight 81.4 kg Intake: IV 1000 / 1000 NS Inj 1,000 ML @ 100 mls/hr IV 1000 / 1000 .CONT .Q10H [facility] Rx#:[id number] Oral 1140 / 1140 240 / 240 240 / 240 Output: Urine 1000 / 1000 600 / 600 200 / 200 Other: Date of Last Bowel Movement 06/29/18 Narrative: GENERAL: Well-developed, well-nourished, in no acute distress. alert and orientated HEENT: Head is normocephalic without any lesions or masses noted. Facial features are symmetric. Eyes: Extraocular muscles are intact. Conjunctivae were clear. NECK: Supple without any masses. Trachea midline no deviation. No JVD, CARDIAC: Regular rhythm, regular rate. S1/S2 are heard. No murmurs gallops or rubs. LUNGS: Patient does have clinically diminished breath sounds. Still no wheeze, rhonchi or rales. No use of accessory muscles on inspiration or expiration. ABDOMEN: Soft, nontender. Nondistended. Bowel sounds heard in all 4 quadrants. No organomegaly or masses. Negative rebound, negative guarding EXTREMITIES: No edema, pulses are equal bilaterally. No cyanosis or clubbing NEUROLOGY: Mood and affect appear appropriate. Cranial nerves II through XII grossly intact. Moving all extremities, speech is clear Results - Labs CBC & Chem 7: 06/29/18 01:37 06/30/18 09:40 Laboratory Results - last 24 hr 06/30/18 09:40 Procalcitonin 0.10 H Assessment and Plan - Plan Acute hypoxic respiratory failure secondary to chronic obstructive pulmonary disease exacerbation -We will continue O2 sat mentation maintain O2 sat greater than 92% -Continue Zithromax -Continue Solu-Medrol 60 mg IV every 6 hours -Continue DuoNeb every 6 hours while awake and every 2 hours as needed -Pro calcitonin 0.10 Accelerated hypertension -Patient's home medications Lopressor and Lasix have been continued -Increased amlodipine 10 mg daily Acute renal failure superimposed on chronic kidney disease stage III -Continue monitor renal function -Avoid nephrotoxins Hyperlipidemia: -Continue home medications DVT prevention -Subcutaneous heparin Discharge Planning: Anticipate discharge planning in 24-48 hours depending on patient response to treatment
[2018-07-01 12:06] LABS: Potassium 4.4 meq/L (3.5-5.1)
[2018-07-01 12:08] LABS: Calcium 8.5 mg/dL (8.5-10.1)
[2018-07-01] MEDS: Sod Chloride 0.9% Inj 1,000 ML IV.CONT SCH ×2 (12:23→22:00)
[2018-07-01] MEDS: amLODIPine 10 MG Tablet PO SCH (12:28)
[2018-07-02] MEDS: MethylPREDNISolone Sod Succinate Inj 125 MG/2 ML Vial IV.PUSH SCH ×4 (02:37→21:10)
[2018-07-02 05:43] LABS: Baso # (Auto) 0.1 th/mm3 (0.0-0.2); Baso % (Auto) 0.8 % (0.0-2.0); Eos % (Auto) 0.1 % (0.0-4.0); Hematocrit 36.2 % (35.0-46.0); Lymph # (Auto) 0.8 th/mm3 (1.0-4.8); Lymph % (Auto) 6.9 % (9.0-44.0); Mean Corpuscular HGB Conc 33.2 % (32.0-36.0); Mean Corpuscular Hemoglobin 30.8 pg (27.0-34.0); Mean Corpuscular Volume 92.8 fL (80.0-100.0); Mean Platelet Volume 7.1 fL (7.0-11.0); Mono # (Auto) 0.4 th/mm3 (0.0-0.9); Neut # (Auto) 10.6 th/mm3 (1.8-7.7); Neut % (Auto) 89.2 % (16.0-70.0); Platelet Count 244 th/mm3 (150-450); Red Cell Distribution Width 14.6 % (11.6-17.2); White Blood Count 11.9 th/mm3 (4.0-11.0)
[2018-07-02 05:55] LABS: Potassium 4.1 meq/L (3.5-5.1)
[2018-07-02 05:57] LABS: Calcium 8.3 mg/dL (8.5-10.1)
[2018-07-02 05:58] LABS: Carbon Dioxide 24.2 meq/L (21.0-32.0)
[2018-07-02] MEDS: Furosemide 20 MG Tablet PO SCH ×2 (09:52→21:12)
[2018-07-02] MEDS: Heparin - SQ 10,000 UNITS/ML Vial SQ SCH ×2 (09:52→21:10)
[2018-07-02] MEDS: amLODIPine 10 MG Tablet PO SCH (09:53)
[2018-07-02] MEDS: Senna/Docusate Sodium 8.6/50 MG Tablet PO SCH ×2 (10:12→21:11)
[2018-07-02] MEDS: Budesonide-Formoterol 160/4.5 MCG 6 GM Inhaler INH SCH ×2 (10:13→21:13)
[2018-07-02] MEDS: Tiotropium Bromide 18 MCG/ACT Inhaler INH SCH (10:13)
--- NOTE | 2018-07-02 10:54 | P.PNIM ---
Subjective Interval history: 72-year-old female who is seen and examined today for follow-up on chronic obstructive pulmonary disease exacerbation. Patient is resting in chair comfortably. She is not wearing oxygen but maintaining O2 sats in the 92- 93%. Patient states that she is feeling much better. However patient still cannot complete full sentences when she speaks. Vital signs are stable. Patient remains afebrile Physical Exam Vital signs: Vital Signs 07/01/18 12:00 07/01/18 13:24 07/01/18 19:15 Temperature 97.6 F Pulse Rate 86 77 87 Respiratory Rate 19 19 20 Blood Pressure 188/82 H Pulse Oximetry 95 93 L Pulse Oximetry [Exertion on Room Air] Pulse Oximetry [Exertion with Oxygen] Pulse Oximetry [Resting on Room Air] Pulse Oximetry [Resting with Oxygen] 07/01/18 20:00 07/02/18 00:00 07/02/18 07:23 Temperature 96.0 F L 97.5 F L Pulse Rate 87 93 H 72 Respiratory Rate 16 16 16 Blood Pressure 152/70 H 132/62 Pulse Oximetry 92 L 92 L 93 L Pulse Oximetry [Exertion on Room Air] Pulse Oximetry [Exertion with Oxygen] Pulse Oximetry [Resting on Room Air] Pulse Oximetry [Resting with Oxygen] 07/02/18 08:00 07/02/18 08:56 Temperature 96.5 F L Pulse Rate 89 Respiratory Rate 18 Blood Pressure 151/70 H Pulse Oximetry 93 L Pulse Oximetry [Exertion on Room Air] 82 L Pulse Oximetry [Exertion with Oxygen] 90 L Pulse Oximetry [Resting on Room Air] 92 L Pulse Oximetry [Resting with Oxygen] 94 L Intake & Output 07/01/18 07/02/18 07/02/18 18:59 06:59 18:59 Intake Total 1480 / 1480 1450 / 1450 Output Total 500 / 500 Balance 980 / 980 1450 / 1450 Weight 81.4 kg Intake: IV 1000 / 1000 1000 / 1000 NS Inj 1,000 ML @ 100 mls/hr IV 1000 / 1000 1000 / 1000 .CONT .Q10H [facility] Rx#:[id number] Oral 480 / 480 450 / 450 Output: Urine 500 / 500 Other: # Voids 3 Date of Last Bowel Movement 07/01/18 Narrative: GENERAL: Well-developed, well-nourished, in no acute distress. alert and orientated HEENT: Head is normocephalic without any lesions or masses noted. Facial features are symmetric. Eyes: Extraocular muscles are intact. Conjunctivae were clear. NECK: Supple without any masses. Trachea midline no deviation. No JVD, CARDIAC: Regular rhythm, regular rate. S1/S2 are heard. No murmurs gallops or rubs. LUNGS: Patient with diminished breath sounds, she is now starting to develop mild wheeze. No rhonchi or rales. No use of accessory muscles on inspiration or expiration. ABDOMEN: Soft, nontender. Nondistended. Bowel sounds heard in all 4 quadrants. No organomegaly or masses. Negative rebound, negative guarding EXTREMITIES: No edema, pulses are equal bilaterally. No cyanosis or clubbing NEUROLOGY: Mood and affect appear appropriate. Cranial nerves II through XII grossly intact. Moving all extremities, speech is clear Results - Labs CBC & Chem 7: 07/02/18 05:20 07/02/18 05:20 Laboratory Results - last 24 hr 07/01/18 07/02/18 07/02/18 11:47 05:20 05:20 CBC w Diff Auto diff final WBC 11.9 H RBC 3.90 L Hgb 12.0 Hct 36.2 MCV 92.8 MCH 30.8 MCHC 33.2 RDW 14.6 Plt Count 244 MPV 7.1 Neut % (Auto) 89.2 H Lymph % (Auto) 6.9 L [place] % (Auto) 3.0 Eos % (Auto) 0.1 Baso % (Auto) 0.8 Neut # (Auto) 10.6 H Lymph # (Auto) 0.8 L [place] # (Auto) 0.4 Eos # (Auto) 0.0 Baso # (Auto) 0.1 WBC Differential . Differential Comment . Sodium 134 L 137 Potassium 4.4 4.1 Chloride 99 104 Carbon Dioxide 28.0 24.2 Anion Gap 7 9 BUN 51 H 51 H Creatinine 1.70 H 1.50 H Estimated GFR 29 L 34 L Random Glucose 120 H 157 H Calcium 8.5 8.3 L Assessment and Plan - Plan Acute hypoxic respiratory failure secondary to chronic obstructive pulmonary disease exacerbation -We will continue O2 sat mentation maintain O2 sat greater than 92% -Continue Zithromax -Continue Solu-Medrol 60 mg IV every 6 hours -Continue DuoNeb every 6 hours while awake and every 2 hours as needed -Pro calcitonin 0.10 -Home oxygen walk study was performed and patient will require home oxygen, case management has been consulted, prescription has been written. -Discussed with the patient that she is not stable enough to go home today. If she continues to improve she might build to go home tomorrow with home oxygen. Patient does understand. Accelerated hypertension -Patient's home medications Lopressor and Lasix have been continued -Continue amlodipine 10 mg daily Acute renal failure superimposed on chronic kidney disease stage III -Continue monitor renal function -Avoid nephrotoxins Hyperlipidemia: -Continue home medications DVT prevention -Subcutaneous heparin Discharge Planning: Anticipate discharge planning in 24 hours depending on patient response to treatment, Case management consulted for home oxygen
[2018-07-03] MEDS: MethylPREDNISolone Sod Succinate Inj 125 MG/2 ML Vial IV.PUSH SCH ×2 (03:17→08:19)
[2018-07-03] MEDS: Senna/Docusate Sodium 8.6/50 MG Tablet PO SCH (08:18)
[2018-07-03] MEDS: Heparin - SQ 10,000 UNITS/ML Vial SQ SCH (08:20)
[2018-07-03] MEDS: amLODIPine 10 MG Tablet PO SCH (08:20)
[2018-07-03] MEDS: Furosemide 20 MG Tablet PO SCH (08:20)
[2018-07-03] MEDS: Budesonide-Formoterol 160/4.5 MCG 6 GM Inhaler INH SCH (08:21)
[2018-07-03] MEDS: Tiotropium Bromide 18 MCG/ACT Inhaler INH SCH (08:21)
[2018-07-03] MEDS: Sod Chloride 0.9% Inj 1,000 ML IV.CONT SCH (08:28)
--- NOTE | 2018-07-03 12:12 | P.DS ---
Date of admission: 07/02/18 15:15 Primary care physician: Mehdi Parikh MD Brief History from admission: 72-year-old female who has a history of emphysema/COPD, HLD, CAD with stent in the past says that she has had an allergic reaction possibly to mold that she was cleaning out of her basement yesterday she has nebulizers it is not improving her symptoms which are wheezing shortness of breath. The patient was then admitted for a COPD exacerbation after she was found to be hypoxic in the emergency department and had a significant amount of wheezing on physical examination. DS: Medications - Discharge Medications Prescriptions: amlodipine [Norvasc] 10 mg PO DAILY #30 tab prednisone 10 mg PO DAILY #17 tab DS: Summary Hospital Course: This patient is a 72-year-old female with a diagnosis of emphysema/COPD, dyslipidemia, coronary artery disease with a stent placed in the past. The patient says she was cleaning at home and began to have shortness of breath and came into the emergency department to be evaluated. She is a former tobacco smoker was approximately 4 years ago when she had a stent placed. 1. Acute hypoxic respiratory failure secondary to COPD exacerbation As mentioned above the patient presented with complaints of shortness of breath. In the emergency department she was noted to have an O2 saturation in the 80s. A chest x-ray was done which did not show any infiltrates. On physical examination patient had a significant amount of wheezing. She was started on breathing treatments [id number] as well as IV Solu-Medrol. She was also given supplemental oxygen. The patient was monitored closely while in house. After a few days of treatment with IV steroids and breathing treatments the patient's symptoms have improved. Upon ambulation the patient was noted to continuously drop her O2 saturations. She does not have complaints of shortness of breath while at rest. She will be given home oxygen on discharge today. The patient says she uses a walker at home when ambulating occasionally. Currently she is walking around the unit without any significant difficulties. The patient lives at home with her daughter and will be discharged home today. She states that she has her inhalers at home and will not need a prescription for the inhalers. I recommended the patient follow-up with her primary care doctor within the next 1-2 weeks. She should also obtain outpatient pulmonary function testing. She will be given a tapering dose of p.o. prednisone on discharge. 2. Hypertension The patient can continue taking metoprolol at discharge. Amlodipine was also added to the patient's antihypertensive medication regimen. Her blood pressure medication can be adjusted as needed. She was advised to take her blood pressures at home and log them in the chart. She can then presented his blood pressure log to her primary care doctor. 3. Coronary artery disease/dyslipidemia Continue statin. Continue beta-jerome - Time Spent with Patient Total time spent providing and/or coordinating discharge services: Greater than 30 minutes - Quality: VTE Deep Vein Thrombosis/Pulmonary Embolism Present on Admission: No Exam Vital signs: Vital Signs 07/02/18 13:41 07/02/18 15:53 07/02/18 19:23 Temperature 96.6 F L Pulse Rate 80 90 84 Respiratory Rate 16 20 18 Blood Pressure 126/60 Pulse Oximetry 98 98 07/02/18 20:00 07/03/18 00:00 07/03/18 07:16 Temperature 96.2 F L 97.4 F L Pulse Rate 88 95 H 77 Respiratory Rate 16 16 18 Blood Pressure 141/64 H 157/72 H Pulse Oximetry 93 L 95 96 07/03/18 08:00 Temperature 97.3 F L Pulse Rate 93 H Respiratory Rate 20 Blood Pressure 158/74 H Pulse Oximetry 94 L Intake & Output 07/02/18 07/03/18 07/03/18 18:59 06:59 18:59 Intake Total 100 / 100 480 / 480 Balance 100 / 100 480 / 480 Weight 81.4 kg Intake: IV 100 / 100 NS Inj 1,000 ML @ 100 mls/hr IV 100 / 100 .CONT .Q10H SASHA Rx#:[id number] Oral 480 / 480 Other: # Voids 4 4 Date of Last Bowel Movement 07/02/18 # Bowel Movements 1 Narrative: General patient in no acute distress HEENT extraocular movements are intact, clear oropharyngeal mucosa, no JVD Cardiovascular S1-S2 audible, RRR, no murmurs rubs or gallops Respiratory clear to auscultation bilaterally Abdomen soft, nontender, nondistended, normal bowel sounds Extremities no edema 2+ distal pulses in bilateral upper and lower extremities Neuro cranial nerves II through XII intact Results Procedures completed during hospitalization: None - Impressions ITS Impressions Chest X-Ray 06/29/18 01:30 CONCLUSION: Negative examination. Discharge Plan - Discharge Disposition Patient Disposition: 01 Discharge Home - Discharge Condition Condition: Good - Discharge Order Discharge Orders: Discharge Order (Routine); Ordered 07/03/18 Ordered By: Elzbieta Villeda - Physicians Team Primary Care Provider: Mehdi Parikh Attending Provider: Elzbieta Villeda Other Providers: Magali De Los Santos
[2018-07-03 12:49] VITALS: BP 150/69; PULSE 84; RESP 19; TEMP 97; O2SAT 95
== END 2018-07-03 13:25 | disposition home or self-care (01) ==
LOC: PHED 01:24 → PHEDA 02:50 → INTOOBSV 02:50 → PH3 07:15
PROVIDERS: ADMIT Hospitalist; ATTEND Hospitalist